=== PATIENT | male | born 1980 | race Caucasian/White ===

== ENCOUNTER 2017-05-27 13:27 | Emergency (ER) | payer SELFPAY ==
[~2017-05-27] VITALS: Ht 170.2 cm; Wt 84.1 kg
[~2017-05-27 13:27] MED LIST: CYCLOBENZAPRINE10 MG PO; FLEXERIL10 MG PO; LORTAB 5/500 501 TAB PO; NO HOME MEDICATIONS
[2017-05-27 13:31] VITALS: BP 172/106; PULSE 101; TEMP 97.1
[2017-05-27] MEDS ORDERED: BACTROBAN15 GM TOP (14:12)
[2017-05-27] MEDS ORDERED: BACTRIM DS 8001 TAB PO (14:12)
== END 2017-05-27 14:59 | disposition home or self-care (01) ==
LOC: COL.ER 13:27
DX: S51.802A Unspecified open wound of left forearm, initial encounter (principal); F17.210 Nicotine dependence, cigarettes, uncomplicated; X58.XXXA Exposure to other specified factors, initial encounter